=== PATIENT | male | born 1960 | race Caucasian/White ===

== ENCOUNTER 2020-08-18 08:30 | Outpatient (CLI) | payer OTHER, SELFPAY ==
--- NOTE | ~2020-08-18 | MR_ITS ---
EXAMINATION: MR lumbar spine wo con DATE: 08/18/2020 09:39 INDICATION: Low back pain. TECHNIQUE: Magnetic resonance imaging (MRI) of the lumbar spine was performed without intravenous con trast. Sequences included sagittal T2-weighted FSE, sagittal T2-weighted FS FSE, sagittal T1-weighted FSE, and axial T2-weighted FSE. COMPARISON: Lumbar spine MRI 05/26/2006 FINDINGS: There is 6 degrees levocurvature of lumbar spine. There is 4 mm retrolisthesis of L2 on L3 and L3 on L4. There is mild chronic anterior wedging of T12-L2 vertebral bodies. There are Schmorl's nodes from T11-T12 through L2-L3. There is mild decreased disc height at L1-L2 L2-L3. There is severe ly decreased disc height at L3-L4 with endplate remodeling. The distal spinal cord signal intensity i s normal. The conus medullaris is at L1. The following disc levels are specifically discussed: L1-L2: There is a central protrusion. There is mild bilateral facet joint osteoarthritis. There is mi ld left neural foraminal stenosis. There is mild central canal stenosis. L2-L3: The disc is bulging and has an annular fissure. There is severe right and moderate left facet joint osteoarthritis. There is moderate right and mild left neural foraminal stenosis. There is mild central canal stenosis. L3-L4: There is bulging and has an annular fissure. There is moderate bilateral facet joint osteoarth ritis. There is moderate bilateral neural foraminal stenosis. There is mild central canal stenosis. L4-L5: The disc is bulging. There is severe right and moderate left facet joint osteoarthritis. There is mild right and moderate left neural foraminal stenosis. There is mild central canal stenosis. L5-S1: The disc is bulging and has an annular fissure. There is mild bilateral facet joint osteoarthr itis. There is mild bilateral neural foraminal stenosis. There is mild central canal stenosis. IMPRESSION: 1. Severe lumbar spondylosis, worsened from 05/26/2006. Reviewed, dictated and finalized at location A. SIT MANAGER
== END 2020-08-18 08:31 | disposition home or self-care (01) ==
LOC: ANHIMG 08:38
PROVIDERS: PCP Family Medicine; Visit Provider Physician Assistant
DX: M47.817 Spondylosis without myelopathy or radiculopathy, lumbosacral region (principal); M48.07 Spinal stenosis, lumbosacral region; M51.46 Schmorl's nodes, lumbar region
CPT/HCPCS: 72148

== ENCOUNTER 2020-09-19 07:52 | Outpatient (CLI) | payer OTHER, SELFPAY ==
--- NOTE | ~2020-09-19 | XR_ITS ---
EXAMINATION: XR chest 2V 09/19/2020 09:21 INDICATION: Preop PROCEDURE: 2 view chest COMPARISON: 08/08/2019 FINDINGS: The lungs are clear. The cardiomediastinal silhouette is within normal limits. There are no pleural effusions. There is no pneumothorax suspected. IMPRESSION: 1: NO ACUTE CARDIOPULMONARY DISEASE. Reviewed, dictated and finalized at location B. BILITY COORDINATOR
--- NOTE | 2020-09-19 09:00 | ECG_ITS ---
Measurements Intervals [place] Rate: 67 P: 3 CA: 170 QRS: -13 QRSD: 115 T: 75 QT: 396 QTc: 420 Interpretive Statements SINUS RHYTHM INTRAVENTRICULAR CONDUCTION DELAY BORDERLINE R WAVE PROGRESSION, ANTERIOR LEADS INFERIOR INFARCT, AGE INDETERMINATE BORDERLINE ST-T WAVE ABNORMALITY- HIGH LATERAL LEADS ABNORMAL ECG Electronically Signed On 09-19-2020 9:16:59 MANAGER INSPECTION by Ahsan Estrada D.O.
[2020-09-19 09:45] LABS: Urine Cotinine NEGATIVE
== END 2020-09-19 07:53 | disposition home or self-care (01) ==
LOC: ANHSURGERY 07:54
PROVIDERS: PCP Family Medicine; Visit Provider Orthopaedic Surgery
DX: Z01.818 Encounter for other preprocedural examination (principal); M17.12 Unilateral primary osteoarthritis, left knee; R94.31 Abnormal electrocardiogram [ECG] [EKG]
CPT/HCPCS: 71046; 80307; 86850; 86900; 86901; 87070; 87147; 87186; 93005

== ENCOUNTER 2021-05-29 11:14 | Outpatient (CLI) | payer OTHER, SELFPAY ==
[2021-05-29 12:36] LABS: Basophils Percent Auto 0.3 % (0.2-1.2); Eosinophils Absolute Auto 0.1 K/mm3 (0-0.3); Eosinophils Percent Auto 1.1 % (0-4.4); Hematocrit 43.8 % (42.0-52.0); Hemoglobin 14.7 g/dL (14.0-18.0); Immature Granulocyte Absolute 0.03 K/mm3 (0.00-0.031); Immature Granulocyte Percent A 0.5 % (0-0.5); Lymphocytes Absolute Auto 0.97 K/mm3 (0.9-3.2); Lymphocytes Percent Auto 15.3 % (18.3-44.2); Mean Corpuscular HGB Conc 33.6 g/dl (32-36); Mean Corpuscular Hemoglobin 27.1 pg (26-34); Mean Corpuscular Volume 80.8 fl (80-100); Mean Platelet Volume 9.6 fl (7.4-10.4); Monocytes Absolute Auto 0.6 K/mm3 (0.1-0.6); Monocytes Percent Auto 8.8 % (2.6-8.5); Neutrophils Absolute Auto 4.7 K/mm3 (1.3-6.7); Platelet Count Result 276 k/mm3 (150-375); Red Blood Count 5.42 M/mm3 (4.6-6.20); Red Cell Distribution Width 14.9 % (11.5-14.5); White Blood Count 6.3 K/mm3 (4.5-10.0)
[2021-05-29 12:54] LABS: Anion Gap 14 mmol/L (8-16); Blood Urea Nitrogen 21 mg/dL (9-20); Calcium 9.7 mg/dL (8.4-10.2); Carbon Dioxide 23 mmol/L (22-30); Chloride 104 mmol/L (98-107); Estimated Glomerular Filt Rate > 60; Glucose 107 mg/dL (65-110); Sodium 141 mmol/L (137-145)
[2021-05-29 13:16] LABS: Hemoglobin A1C 5.9 % (<5.7)
[2021-05-29 13:32] LABS: Urine Cotinine NEGATIVE
== END 2021-05-29 11:15 | disposition home or self-care (01) ==
LOC: ANHSURGERY 11:23
PROVIDERS: PCP Family Medicine; Visit Provider Orthopaedic Surgery
DX: Z01.818 Encounter for other preprocedural examination (principal); M17.12 Unilateral primary osteoarthritis, left knee
CPT/HCPCS: 80048; 80307; 82040; 83036; 85025; 87070

== ENCOUNTER 2021-06-12 02:01 | Day surgery (SDC) | payer OTHER, SELFPAY ==
[2021-05-29 11:30] VITALS: BMI 31.0
[2021-05-29 12:04] VITALS: BP 122/85; PULSE 66; RESP 16; TEMP 37; O2SAT 97
--- NOTE | 2021-06-07 12:34 | PM.IMHP ---
H&P: HPI History of Present Illness Date/Time: 06/07/21 12:34 60 year old male patient of Dr. Gutierrez. He presents today for an [place] partial knee replacement of his left knee. He has been having pain in this knee for years. He has been on diclofenac chronically. He has severe medial compartment arthritis. He has reached a point where his pain is on a daily basis and keeping him from activities. He is ready proceed with surgical intervention to the knee. He has been evaluated and felt to be a good candidate for partial knee replacement. Chief Complaint: left knee DJD Review of Systems Review of Systems: All systems reviewed & are unremarkable except as noted in HPI and below PMFSH Past Medical History Medical History GERD (gastroesophageal reflux disease) HLD (hyperlipidemia) HTN (hypertension) Surgical History Surgical History No significant past surgical history Family History Family History Mother Hypertension Cerebrovascular accident Family history of elevated blood lipids Father Cerebrovascular accident Social History Social History Smoking packs per day: 1.5 Smoking cigarettes per day: 30.0 Years smoked: 30 Smoking pack-years: 45.00 Smoking status: Former smoker Tobacco type: cigarettes Second hand tobacco smoke exposure: Yes Smoking end date: 08/10/99 Additional smoking assessment comments: DENIES ANY FORM OF TOBACCO USE Alcohol intake: never Alcohol use details: QUIT 1999 Substance use: never Substance use type: does not use Gender identity (if verbalized by the patient): Male Spiritual care concerns: No Meds Home Medications and Allergies Home Medications Medication Instructions Recorded Confirmed Type Filipino ginseng root [Filipino 550 mg PO QAM 09/19/20 05/29/21 History Ginseng] ascorbic acid (vitamin C) [Vitamin 1 g PO QAM 09/19/20 05/29/21 History C] cholecalciferol (vitamin D3) 125 mcg PO QAM 09/19/20 05/29/21 History cyanocobalamin (vitamin B-12) 5,000 mcg PO QAM 09/19/20 05/29/21 History ferrous sulfate [iron] 325 mg PO 2XW 09/19/20 05/29/21 History uncvjzuw-ker-uahfb-vit K-lycop 1 tablet PO QAM 09/19/20 05/29/21 History [One-A-Day Men's 50 Plus] omega-3 fatty acids-vitamin E 1 cap PO QAM 09/19/20 05/29/21 History [Fish Oil] omeprazole 40 mg PO QAM 09/19/20 05/29/21 History psyllium husk [Metamucil] 3.12 g PO QAM 09/19/20 05/29/21 History irbesartan 150 1 tablet PO QAM #90 tablet 09/27/20 05/29/21 Rx mg-hydrochlorothiazide 12.5 mg tablet atorvastatin 20 mg tablet See Rx Instructions .ROUTE 02/18/21 05/29/21 Rx .COMPLEX #90 tablet acetaminophen [Tylenol Extra 1,500 mg PO DAILY PRN 05/29/21 05/29/21 History Strength] diclofenac sodium 150 mg PO DAILY 05/29/21 05/29/21 History glucosamine sulfate [Glucosamine] 500 mg PO DAILY 05/29/21 05/29/21 History Allergies Allergy/AdvReac Type Severity Reaction Status Date / Time bee venom protein (honey bee) Allergy Unknown UNKNOWN Verified 05/29/21 11:31 Exam Narrative: 60-year-old male he is 5 ft 10 and 206 lb. He walks with a minimal limp. Range of motion left knee is from 0-140 degrees. There is no definite effusion. No medial or lateral joint line tenderness. No pain patellofemoral grind. Negative Hola's. Moderate valgus pseudolaxity medially. 2+ dorsalis pedis and post tibial artery pulse. Normal sensation. Skin is all normal in left leg. His left hip has full range of motion without discomfort. Negative Stinchfield maneuver. No edema in left lower extremity. Resp: Auscultation: clear to auscultation bilaterally Cardio: Rate: regular rate Rhythm: regular rhythm Assessment and Plan Additional Plan 60-year-old male who has isolated medial
--- NOTE | 2021-06-11 14:26 | WPDANESEPPF ---
Anes - Initial Pre Proc Eval Procedure: Operation Date: 06/12/21 07:30 Proposed Procedures p Left [place] Partial Knee Replacement Versus Total Knee Arthroplasty - Ernie Vogel MD Date/Time: 06/11/21 14:27 Surgeon: Ernie Vogel MD Pre Op Diagnosis: Medial compartment OA Left knee Patient Data Age: 60 Gender: M Height: 1.83 m Weight: 103.9 kg Last Vital Signs Temp 37.0 C 05/29/21 12:04 Pulse 66 05/29/21 12:04 Resp 16 05/29/21 12:04 BP 122/85 05/29/21 12:04 Pulse Ox 97 05/29/21 12:04 Allergies Allergy/AdvReac Type Severity Reaction Status Date / Time bee venom protein (honey bee) Allergy Unknown UNKNOWN Verified 06/12/21 05:59 Home Medications Medication Instructions Recorded Confirmed Type Wallisian ginseng root [Wallisian 550 mg PO QAM 09/19/20 06/12/21 History Ginseng] ascorbic acid (vitamin C) [Vitamin 1 g PO QAM 09/19/20 06/12/21 History C] cholecalciferol (vitamin D3) 125 mcg PO QAM 09/19/20 06/12/21 History cyanocobalamin (vitamin B-12) 5,000 mcg PO QAM 09/19/20 06/12/21 History ferrous sulfate [iron] 325 mg PO 2XW 09/19/20 06/12/21 History jpeoxsgs-cjm-kzmnk-vit K-lycop 1 tablet PO QAM 09/19/20 06/12/21 History [One-A-Day Men's 50 Plus] omega-3 fatty acids-vitamin E 1 cap PO QAM 09/19/20 06/12/21 History [Fish Oil] omeprazole 40 mg PO QAM 09/19/20 06/12/21 History psyllium husk [Metamucil] 3.12 g PO QAM 09/19/20 06/12/21 History irbesartan 150 1 tablet PO QAM #90 tablet 09/27/20 06/12/21 Rx mg-hydrochlorothiazide 12.5 mg tablet atorvastatin 20 mg tablet See Rx Instructions .ROUTE 02/18/21 06/12/21 Rx .COMPLEX #90 tablet acetaminophen [Tylenol Extra 1,500 mg PO DAILY PRN 05/29/21 06/12/21 History Strength] diclofenac sodium 150 mg PO DAILY 05/29/21 06/12/21 History glucosamine sulfate [Glucosamine] 500 mg PO DAILY 05/29/21 06/12/21 History Patient hx anesthesia problems: none Family hx anesthesia problems: none Results Review: All pre-operative results and documents have been reviewed as part of the pre-operative evaluation. [facility] Past Medical History Medical History (Updated 06/11/21 @ 14:27 by Wiley Duff MD) Back Pain GERD (gastroesophageal reflux disease) HLD (hyperlipidemia) HTN (hypertension) Obesity Surgical History Surgical History No significant past surgical history Family History Family History Mother Hypertension Cerebrovascular accident Family history of elevated blood lipids Father Cerebrovascular accident Social History Social History Smoking packs per day: 1.5 Smoking cigarettes per day: 30.0 Years smoked: 30 Smoking pack-years: 45.00 Smoking status: Former smoker Tobacco type: cigarettes Second hand tobacco smoke exposure: Yes Smoking end date: 08/10/99 Additional smoking assessment comments: DENIES ANY FORM OF TOBACCO USE Alcohol intake: never Alcohol use details: QUIT 1999 Substance use: never Substance use type: does not use Living arrangements: alone Gender identity (if verbalized by the patient): Male Spiritual care concerns: No Anes - Eval Final PreProcedure Day of Procedure 06/11/21 14:27 Patient weight: obese Heart: regular rate and rhythm Lungs: clear to auscultation and normal air movement Airway: Mallampati scale class II Neurological: alert and oriented Last oral intake: >/= 8 hours ASA classification: III Emergent: no Anesthetic plan: proceed Anesthesia type and monitoring: general ETT Results Review: All pre-operative results and documents have been reviewed as part of the pre-operative evaluation. Informed Consent: The patient's anesthetic plan and its attendant risks and benefits were discussed with the patient/family/POA. Questions were solicited and answers provided to the satisf
[2021-06-12] VITALS (13 sets, daily range): BP systolic 109–1113; BP diastolic 57–98; PULSE 60–94; RESP 12–16; TEMP 35.8–36.7; O2SAT 94–100
--- NOTE | ~2021-06-12 | XR_ITS ---
EXAMINATION: KNEE ONE/TWO VIEW-RIGHT DATE: 06/12/2021 11:41 INDICATION: Postoperative evaluation following left knee medial unicompartmental arthroplasty TECHNIQUE: Anteroposterior and lateral views of the left knee were obtained. COMPARISON: None. FINDINGS: Left knee medial unicompartmental arthroplasty appears well seated and in near anatomic alignment. N o fractures identified. Expected postoperative subcutaneous and intra-articular gas. IMPRESSION: 1. Left knee medial unicompartmental arthroplasty, negative for postoperative purposes. Reviewed, dictated and finalized at location A. IMPRESSION: 1. Left knee medial unicompartmental arthroplasty, negative for postoperative p urposes.
--- NOTE | ~2021-06-12 | XR_ITS ---
EXAMINATION: XR surgery orthopedic EXAM DATE: 06/12/2021 11:09 INDICATION: Left knee partial replacement. TECHNIQUE: Fluoroscopy used during XR surgery orthopedic performed by Dr. Ernie Vogel MD. Radi ologist was not present for the imaging or procedure. Total fluoroscopic time of 1 minute 19 seconds . The DAP for this procedure was 25.7 cGycm2. A total of 3 images sent to PACS from the exam. FINDINGS: Images demonstrate arthroplasty hardware overlying left knee medial tibiofemoral compartme nt. Correlate with procedure note. IMPRESSION: Fluoroscopy used during left knee surgery. Reviewed, dictated and finalized at location A.
[2021-06-12] MEDS: ACETAMINOPHEN 500 MG TABLET 1000 MG PO ×2 (06:01→17:22)
[2021-06-12] MEDS: LACTATED RINGERS 1,000 ML 30 ML IV CONT ×2 (06:29→11:25)
[2021-06-12] MEDS: TRANEXAMIC ACID 1,000MG/ISO100 1,000 MG/100 ML BAG 200 MG IVPB (06:54)
--- NOTE | 2021-06-12 07:17 | WPDHPUPDATE1 ---
History and Physical Update Update Date/Time: 06/12/21 07:17 History and Physical has been reviewed, including an updated exam of the patient. There are NO changes in the patient's condition. Risks, benefits, and alternatives have been discussed and questions answered. Patient agrees to proceed with procedure.
[2021-06-12] MEDS: ceFAZolin 2 GM/D5W 50 ML 2 GM/50 ML BAG IVPB (07:32)
[2021-06-12] MEDS: ceFAZolin SODIUM 1 GM VIAL 3 GM IRRIGATION (08:53)
[2021-06-12] MEDS: TRANEXAMIC ACID 1,000 MG/10 ML AMPUL 1000 MG IV PUSH (10:16)
[2021-06-12] MEDS: ceFAZolin SODIUM 1 GM VIAL IV PUSH (10:20)
--- NOTE | 2021-06-12 11:22 | W.PM.PROC2 ---
Procedure Note - Detailed Date of Procedure 06/12/21 Pre-op Diagnosis Medial compartment OA Left knee Post-op Diagnosis same Procedure Performed [place] partial knee replacement Surgeon Ernie Vogel MD Purchase Analyst Leonor Marvin Anesthesia general Description of Procedure Patient was brought to the operating room and general anesthesia was administered. Received 2 g of Ancef weight based vancomycin to 1 g of tranexamic acid preoperatively. The left leg was supported on the [place] thigh vera after application of tourniquet on the thigh. This was additionally padded. The left knee was prepped draped usual fashion. Limb was exsanguinated tourniquet elevated to 250 mmHg. A 4 in longitudinal median parapatellar incision was made from medial to tibial tubercle to medial to superior pole of patella. Arthrotomy was made in line with the incision. A 1 cm split the vastus medialis made top. A small amount of the infrapatellar fat pad was excised. The ACL was intact. Lateral compartment looked normal. There was a large anvil osteophyte that was debrided. There were large medial distal femoral osteophytes removed. A medial tibial osteophyte was removed anteriorly and medial and inferior patellar osteophyte removed. Cartilage on the trochlea showed minimal chondromalacia mild chondromalacia medial facet of the patella. Osteophytes from around the intercondylar notch were removed. The 3 mm spoon fit and we linked this to the tibial cutting guide set at 5? of posterior slope. This was pinned and the tibial cut was made. We brought in the mini C-arm to determine the optimal position for the vertical wall and I could see that the de would fit anterior to posterior and that the see was somewhat undersized. An additional 2 mm of bone remained from the vertical wall and after preparation the size D fit line to line on the tibial plateau. I felt the large femur was best size for him and using the femoral drill guide set at 5 mm linked to the intramedullary rick in the femur, drill holes were made in the center of the medial femoral condyle. Posterior Thatch chamfer cut made. Distal femur milled with a size 0 mm spigot and we trialed. The 5 Feeler was a bit tight in flexion the 4 bit loose. In extension the 2 was tight and the. An additional 3 mm of bone were removed the distal femur with a 3 mm spigot. On trialing we had appropriate balance and wiggle with the 5 mm bearing trial at 20? and 100? of flexion. The trial tibia was spiked tibial plateau and the keel slot made with the toothbrush saw. The impingement guide was placed and anterior impingement recessed milled on the femur posteriorly there were no additional osteophytes removed. On trialing the 5 bearing tracked appropriately.. Was 1 mm from the vertical wall at 90? and about 3-4 mm from the vertical wall at full extension. A step drill was used to make multiple perforations in the tibial plateau and distal femur and the bony surfaces thoroughly irrigated and dried. One batch of methyl methylmethacrylate was mixed and applied to the D tibial component and then pressurized into the tibial plateau and the D tibia fully seated and trial femur inserted the knee brought into 45? of flexion with the 5 degree Feeler which was tight. Tourniquet was released at about 100 minutes. Cement was allowed to harden after which excess cement was sought for removed and we re-exsanguinated the limb again tourniquet elevated to 250 mmHg and after irrigation and drying the large femoral component was cemented in the same fashion. Tourniquet was again released. After cement hardening excess cement was sought for removed and we trialed. The 5 Feeler was too tight the 4 mm feel it had the appropriate friction to it. The 4 mm bearing was snapped into place with a fair amount of difficulty and had appropriate wiggle in flexion extension. I could not snapped the [address] Therefore the 4 mm bearing was chosen was placed w
--- NOTE | 2021-06-12 11:44 | P.DS_ITS ---
DS: Admitting Diagnosis Discharge Date 06/12/2021 Admitting Diagnosis Osteoarthritis left knee DS: Discharge Diagnosis Discharge Diagnosis (1) Total knee replacement status: Code(s): Z96.659 - Presence of unspecified artificial knee joint Status: Acute Assessment and Plan: Patient underwent left partial knee replacement with Hiller system medial compartment left knee on 06/12/2021. Be discharged either on 06/12 or 06/13 home. DS: Summary Hospital Course Hospital Course: Patient had an uneventful surgery. We will see how he feels this afternoon and if he would like to go home he may be discharged today if not we will keep him overnight and discharge him tomorrow morning after therapy. Time Spent with Patient Time attestation: Total time spent providing and/or coordinating discharge services: DS: Data Data Completed and Pending Labs on day of discharge: Labs from last 24 hours 06/12/21 06:23 Blood Type A Positive Antibody Screen Negative Discharge Plan Discharge Patient Disposition: Home, Self-Care Discharge Instructions: Avoid sitting in the chair during the 1st 10 days after surgery except to eat go to the bathroom and perhaps receive a visitor. When not up walking, reclined with your back on the bed or couch with her leg elevated on several pillows to keep your knee above your heart which will minimize excess swelling. Change the dressing after 6 days and apply a new dressing. If bleeding tracks to the edge of the dressing you can change it at that time. Stand Alone Forms: General Discharge Instructions Discharge Medications: New acetaminophen 500 mg Tablet 1,000 mg PO Q6H Qty: 100 RF: 0 Eliquis 2.5 mg Tablet 2.5 mg PO Q12HR Qty: 24 RF: 0 celecoxib [Celebrex] 200 mg Capsule 200 mg PO DAILY@0800 Qty: 30 RF: 0 sennosides-docusate sodium [Senokot-S] 8.6-50 mg Tablet 2 tab PO BID Qty: 100 RF: 0 oxycodone 5 mg Tablet 5 mg PO Q4H PRN (Reason: Pain Rated 4-10) Qty: 40 RF: 0 Continued cholecalciferol (vitamin D3) 125 mcg (5,000 unit) Capsule 125 mcg PO QAM RF: 0 psyllium husk [Metamucil] 0.52 gram Capsule 3.12 g PO QAM RF: 0 One-A-Day Men's 50 Plus 400-20-370 mcg Tablet 1 tablet PO QAM RF: 0 cyanocobalamin (vitamin B-12) 5,000 mcg Capsule 5,000 mcg PO QAM RF: 0 omeprazole 40 mg capsule,delayed release(DR/EC) 40 mg PO QAM RF: 0 irbesartan-hydrochlorothiazide 150-12.5 mg tablet 1 tablet PO QAM Qty: 90 RF: 3 atorvastatin 20 mg tablet See Rx Instructions .ROUTE .COMPLEX Qty: 90 RF: 3 Held ascorbic acid (vitamin C) [Vitamin C] 1,000 mg Tablet 1 g PO QAM RF: 0 Hold Instructions: Resume on 06/26/21. ferrous sulfate [iron] 325 mg (65 mg iron) Tablet 325 mg PO 2XW RF: 0 Hold Instructions: Resume on 06/26/21. Senegalese ginseng root 500 mg Capsule 550 mg PO QAM RF: 0 Hold Instructions: Resume on 06/26/21. omega-3 fatty acids-vitamin E 1,000 mg Capsule 1 cap PO QAM RF: 0 Hold Instructions: Resume on 06/26/21. glucosamine sulfate [Glucosamine] 500 mg Tablet 500 mg PO DAILY RF: 0 Hold Instructions: Resume on 06/26/21. Discontinued diclofenac sodium 75 mg tablet,delayed release (DR/EC) 150 mg PO DAILY RF: 0 acetaminophen [Tylenol Extra Strength] 500 mg Capsule 1,500 mg PO DAILY PRN (Reason: Pain) RF: 0
--- NOTE | 2021-06-12 12:15 | SUR.PHASEI ---
[id number]- Call to Dr. Vogel to clarify pain medication orders. Per Dr. Vogel change pain scale for PRN oxycodone to pain rated 5-6.
--- NOTE | 2021-06-12 12:30 | ADMGEN ---
This patient, Aamir Robert, was admitted to Medical Room 247-. Patient/family oriented to hospital policies and general routines including ID bracelet, bed and alarms, visiting hours, pain management, procedures, bathroom and other care routines, personal items, smoking policy, room service/diet, and visiting hours. Information on how to activate the Rapid Response Team has been discussed. Patient/Family are encouraged to report perceived risks to care and to ask questions if they do not understand what they are told or what they should do.
--- NOTE | 2021-06-12 12:46 | ADMGEN ---
This patient, Aamir Robert, was admitted to 2 Medical Room 247. Patient/family oriented to hospital policies and general routines including ID bracelet, bed and alarms, visiting hours, pain management, procedures, bathroom and other care routines, personal items, smoking policy, room service/diet, and visiting hours. Information on how to activate the Rapid Response Team has been discussed. Patient/Family are encouraged to report perceived risks to care and to ask questions if they do not understand what they are told or what they should do. 1230-pt arrived to room from pacu. Pt A/O x3. Dressing to left knee dry and intact. Denies pain at this time.
[2021-06-12] MEDS: SODIUM CHLORIDE 0.9% IV 1,000 ML 125 ML IV CONT (13:44)
[2021-06-12] MEDS: ONDANSETRON INJ 4 MG/2 ML VIAL IV PUSH (15:19)
[2021-06-12] MEDS: oxyCODONE HCL (*CRX) 5 MG TAB IR PO ×2 (15:19→19:36)
[2021-06-12] MEDS: SENNA/DOCUSATE SODIUM TABLET 2 TAB PO (16:22)
[2021-06-13] MEDS: ACETAMINOPHEN 500 MG TABLET 1000 MG PO ×3 (00:01→11:03)
[2021-06-13 00:58] VITALS: BP 121/77; PULSE 71; RESP 16; TEMP 36.5; O2SAT 98
[2021-06-13] MEDS: oxyCODONE HCL (*CRX) 5 MG TAB IR PO ×4 (04:06→11:05)
[2021-06-13 04:58] VITALS: BP 118/64; PULSE 62; RESP 16; TEMP 36.3; O2SAT 100
[2021-06-13 05:36] LABS: Anion Gap 10 mmol/L (8-16); Blood Urea Nitrogen 17 mg/dL (9-20); Calcium 9.6 mg/dL (8.4-10.2); Carbon Dioxide 23 mmol/L (22-30); Chloride 108 mmol/L (98-107); Eosinophils Percent Auto 0.1 % (0-4.4); Estimated CRCL calculation 107 ml/min; Estimated Glomerular Filt Rate > 60; Glucose 104 mg/dL (65-110); Hematocrit 37.7 % (42.0-52.0); Hemoglobin 12.4 g/dL (14.0-18.0); Immature Granulocyte Absolute 0.06 K/mm3 (0.00-0.031); Immature Granulocyte Percent A 0.4 % (0-0.5); Lymphocytes Absolute Auto 0.94 K/mm3 (0.9-3.2); Lymphocytes Percent Auto 6.7 % (18.3-44.2); Mean Corpuscular HGB Conc 32.9 g/dl (32-36); Mean Corpuscular Hemoglobin 26.3 pg (26-34); Mean Corpuscular Volume 79.9 fl (80-100); Monocytes Absolute Auto 1.4 K/mm3 (0.1-0.6); Monocytes Percent Auto 9.6 % (2.6-8.5); Neutrophils Absolute Auto 11.8 K/mm3 (1.3-6.7); Neutrophils Percent Auto 83.2 % (45.5-73.1); Platelet Count Result 273 k/mm3 (150-375); Potassium 4.2 mmol/L (3.4-5.0); Red Blood Count 4.72 M/mm3 (4.6-6.20); Red Cell Distribution Width 15.1 % (11.5-14.5); Sodium 141 mmol/L (137-145); White Blood Count 14.1 K/mm3 (4.5-10.0)
[2021-06-13] MEDS: CYANOCOBALAMIN 1,000 MCG TABLET 5000 MCG PO (08:02)
[2021-06-13] MEDS: PSYLLIUM POWDER PACKET 1 PACKET PO (08:02)
[2021-06-13] MEDS: IRBESARTAN 150 MG TABLET PO (08:02)
[2021-06-13] MEDS: hydroCHLOROthiazide 12.5 MG CAPSULE PO (08:02)
[2021-06-13] MEDS: CELECOXIB 200 MG CAPSULE PO (08:03)
[2021-06-13] MEDS: ATORVASTATIN 20 MG TABLET PO (08:03)
[2021-06-13] MEDS: SENNA/DOCUSATE SODIUM TABLET 2 TAB PO (08:03)
[2021-06-13] MEDS: CHOLECALCIFEROL 1,000 UNITS TABLET 5000 UNITS PO (08:03)
[2021-06-13 08:04] VITALS: RESP 18; O2SAT 100
[2021-06-13] MEDS: THERAPEUTIC MULTIVITAMINS/MINERALS TAB (*BKC) 1 TABLET PO (08:04)
[2021-06-13] MEDS: PANTOPRAZOLE 40 MG TABLET PO (08:04)
[2021-06-13] MEDS: APIXABAN 2.5 MG TABLET PO (08:04)
--- NOTE | 2021-06-13 09:31 | PM.PNORT ---
Progress Note: A&P Additional Plan Patient is ready for discharge to home today nausea has resolved. Patient voiced understanding agrees above plan. He is instructed to call the office immediately for any further problems difficulties or questions regarding his postoperative course. He will follow up with Dr. Vogel as prescheduled by the office. Subjective Subjective Date/Time Seen: 06/13/21 09:31 patient is doing well status post partial knee arthroplasty nausea has resolved. The patient's pain is well controlled he is deemed stable for discharge to home he is eating well this morning and tolerating physical therapy. Review of Systems Review of Systems: All systems reviewed & are unremarkable except as noted in HPI and below Exam Narrative: Patient is a well-developed well-nourished male no acute distress alert oriented x3. Normal mood and affect this morning. Sitting up eating breakfast nausea is well controlled pain is well controlled. Vital signs are stable is afebrile neurovascular is intact wound is clean and dry calves are benign. Objective Data Vital Signs Vital Signs: Vital Signs - 24 hr 06/12/21 11:25 06/12/21 11:40 06/12/21 11:45 Temperature 36.4 C L Pulse Rate 91 71 72 Respiratory Rate 13 12 16 Blood Pressure 152/83 H 1113/57 H 117/64 Pulse Oximetry 100 97 94 06/12/21 11:55 06/12/21 12:05 06/12/21 12:20 Temperature Pulse Rate 70 69 66 Respiratory Rate 16 16 16 Blood Pressure 109/69 109/76 125/77 Pulse Oximetry 97 95 97 06/12/21 12:30 06/12/21 12:45 06/12/21 12:56 Temperature 35.8 C L 36.3 C L Pulse Rate 64 60 Respiratory Rate 14 14 Blood Pressure 115/69 125/82 Pulse Oximetry 94 96 95 06/12/21 13:15 06/12/21 18:20 06/12/21 20:58 Temperature 36.3 C L 36.7 C 36.6 C Pulse Rate 62 94 70 Respiratory Rate 14 14 16 Blood Pressure 122/76 147/79 H 136/72 Pulse Oximetry 94 96 100 06/13/21 00:58 06/13/21 04:58 Temperature 36.5 C 36.3 C L Pulse Rate 71 62 Respiratory Rate 16 16 Blood Pressure 121/77 118/64 Pulse Oximetry 98 100 Intake/Output Intake/Output: Intake & Output 06/10/21 06/11/21 06/12/21 06/13/21 23:59 23:59 23:59 23:59 Intake Total 1989 1040 Balance 1989 1040 Meds/Results Medications: Active Medications Generic Name Dose Route Start Last Admin Trade Name Freq PRN Reason Stop Dose Admin Acetaminophen 1,000 mg 06/12/21 18:00 06/13/21 06:51 Acetaminophen 500 Mg Tablet PO 1,000 mg Q6HR ELISA Administration Apixaban 2.5 mg 06/13/21 09:00 06/13/21 08:04 Apixaban 2.5 Mg Tablet PO 06/16/21 08:59 2.5 mg Q12HR ELISA Administration Atorvastatin Calcium 20 mg 06/13/21 09:00 06/13/21 08:03 Atorvastatin 20 Mg Tablet PO 20 mg DAILY ELISA Administration Celecoxib 200 mg 06/13/21 08:00 06/13/21 08:03 Celecoxib 200 Mg Capsule PO 200 mg DAILY@0800 ELISA Administration Cyanocobalamin 5,000 mcg 06/13/21 09:00 06/13/21 08:02 Cyanocobalamin 1,000 Mcg Tablet PO 5,000 mcg QAM ELISA Administration Hydrochlorothiazide 12.5 mg 06/13/21 09:00 06/13/21 08:02 Hydrochlorothiazide 12.5 Mg Capsule PO 07/13/21 08:59 12.5 mg QAM ELISA Administration Irbesartan 150 mg 06/13/21 09:00 06/13/21 08:02 Irbesartan 150 Mg Tablet PO 07/13/21 08:59 150 mg QAM ELISA Administration Morphine Sulfate 2 mg 06/12/21 11:12 Morphine Sulfate (*Crx) 2 Mg/Ml Inj IV PUSH Q1H PRN Pain Rated 7-10 Multivitamins/Calcium 1 tablet 06/13/21 09:00 06/13/21 08:04 Therapeutic Multivitamins/Minerals Tab (*Bkc) PO 1 tablet QAM ELISA Administration Naloxone HCl 0.1 mg 06/12/21 11:12 Naloxone Hcl 0.4 Mg/Ml Vial IV PUSH Q2M PRN Opiate Reversal Ondansetron HCl 4 mg 06/11/21 14:26 06/12/21 15:19 Ondansetron Inj 4 Mg/2 Ml Vial IV PUSH 4 mg ONCE PRN Administration Nausea Oxycodone HCl 5 mg 06/12/21 11:15 06/13/21 06:50 Oxycodone Hcl (*Crx) 5 Mg Tab Ir PO 5 mg Q4H ELISA Ad
[2021-06-13 09:55] VITALS: BP 112/57; PULSE 71; RESP 16; TEMP 36.4; O2SAT 97
== END 2021-06-13 11:10 | disposition home or self-care (01) ==
LOC: ANHSURGERY 11:47 → ANH2MED 12:28
PROVIDERS: PCP Family Medicine; Visit Provider Orthopaedic Surgery
PROC: (CPT 27446; principal; 2021-06-12 07:30)
DX: M17.12 Unilateral primary osteoarthritis, left knee (principal); I10 Essential (primary) hypertension; E78.5 Hyperlipidemia, unspecified; K21.9 Gastro-esophageal reflux disease without esophagitis; E66.9 Obesity, unspecified; Z68.31 Body mass index [BMI] 31.0-31.9, adult; Z87.891 Personal history of nicotine dependence
CPT/HCPCS: 27446; 36415; 73560; 80048; 80307; 82040; 83036; 85025; 86850; 86900; 86901; 87070; 97110; 97116; 97162; 97165; 97530; A9270; C1713; C1776; J0171; J0690; J1100; J1170; J1885; J2250; J2270; J2405; J2704; J2710; J2795; J3010; J3370; J7030; J7120

== ENCOUNTER → 2022-09-23 10:27 | Outpatient (CLI) | payer OTHER, SELFPAY ==
--- NOTE | ~2022-09-23 | MR_ITS ---
EXAMINATION: MR shoulder LT wo con DATE: 09/23/2022 11:19 INDICATION: Left shoulder pain. TECHNIQUE: Magnetic resonance imaging (MRI) of the left shoulder was performed without intravenous co ntrast. Sequences included axial PD-weighted FS FSE, coronal oblique PD-weighted FS FSE and T2-weight ed FS FSE, and sagittal oblique T2-weighted FS FSE and T1-weighted FSE. COMPARISON: None. FINDINGS: Coracoacromial arch: The acromion undersurface is curved in morphology (type II). There is severe acromioclavicular joint osteoarthritis including inferiorly directed osteophytes. There is moderate subacromial/subdeltoid bu rsitis. Rotator cuff: There is severe supraspinatus and infraspinatus tendinopathy. There is a full-thickness tear of supra spinatus and infraspinatus tendons measuring 2.0 cm anterior to posterior by 2.7 cm proximal to dista l. Teres minor tendon is normal. Subscapularis tendon is normal. There is mild fatty atrophy of infra spinatus muscle belly. Biceps tendon and glenoid labrum: Biceps tendon is in bicipital groove. Intra-articular biceps tendon is normal. There is degenerative tearing of the glenoid labrum anteriorly and posteriorly. Fluid: There is a small glenohumeral joint effusion. Bones/cartilage: There is shallow partial-thickness cartilage loss of glenoid and humeral head. IMPRESSION: 1. Full-thickness rotator cuff tear. 2. Mild glenohumeral joint chondrosis. 3. Small glenohumeral joint effusion and moderate subacromial/subdeltoid bursitis. 4. Severe acromioclavicular joint osteoarthritis. Reviewed, dictated and finalized at location A. TABLE THINNER IMPRESSION: 1. Full-thickness rotator cuff tear. 2. Mild glenohumeral joint chondrosis. 3. Small glenohumeral joint effusion and moderate subacromial/subdeltoid bursit is. 4. Severe acromioclavicular joint osteoarthritis.
== END ==
PROVIDERS: PCP Physician Assistant; Visit Provider Physician Assistant
DX: M25.512 Pain in left shoulder (principal); M75.122 Complete rotator cuff tear or rupture of left shoulder, not specified as traumatic; M94.212 Chondromalacia, left shoulder; M19.012 Primary osteoarthritis, left shoulder; M75.52 Bursitis of left shoulder
CPT/HCPCS: 73221

== ENCOUNTER 2022-12-31 14:52 | Outpatient (CLI) | payer OTHER, SELFPAY ==
--- NOTE | 2022-12-31 15:09 | ECG_ITS ---
Measurements Intervals [place] Rate: 74 P: MD: 0 QRS: -17 QRSD: 114 T: 77 QT: 415 QTc: 462 Interpretive Statements SINUS RHYTHM INTRAVENTRICULAR CONDUCTION DELAY LEFT VENTRICULAR HYPERTROPHY WITH ST-T CHANGE POOR R WAVE PROGRESSION, ANTERIOR LEADS INFERIOR INFARCT, AGE INDETERMINATE BASELINE ARTIFACT- II, III, AVR, AVL, AVF, V2 ABNORMAL ECG COMPARED TO ECG 09/19/2020 09:38:06 NO SIGNIFICANT CHANGES Electronically Signed On 12-31-2022 15:28:45 CDT by Ahsan Estrada D.O.
[2022-12-31 15:34] LABS: Hematocrit 39.1 % (42.0-52.0)
[2022-12-31 15:53] LABS: Anion Gap 8 mmol/L (8-16); Blood Urea Nitrogen 17 mg/dL (9-20); Calcium 9.6 mg/dL (8.4-10.2); Carbon Dioxide 27 mmol/L (22-30); Chloride 105 mmol/L (98-107); Estimated Glomerular Filt Rate > 60; Glucose 89 mg/dL (65-110); Potassium 4.7 mmol/L (3.4-5.0); Sodium 140 mmol/L (137-145)
== END 2022-12-31 14:53 | disposition home or self-care (01) ==
PROVIDERS: Anesthesiology; PCP Physician Assistant; Visit Provider Orthopaedic Surgery
DX: Z01.812 Encounter for preprocedural laboratory examination (principal); Z01.810 Encounter for preprocedural cardiovascular examination; M75.102 Unspecified rotator cuff tear or rupture of left shoulder, not specified as traumatic; M12.812 Other specific arthropathies, not elsewhere classified, left shoulder; E78.5 Hyperlipidemia, unspecified; I10 Essential (primary) hypertension; Z79.899 Other long term (current) drug therapy; D64.9 Anemia, unspecified; I45.9 Conduction disorder, unspecified; I51.7 Cardiomegaly
CPT/HCPCS: 36415; 80048; 85014; 85018; 87081; 87147; 87181; 87186; 93005

== ENCOUNTER 2023-01-07 00:47 | Day surgery (SDC) | payer OTHER, SELFPAY ==
--- NOTE | 2022-12-30 11:15 | PC.NURSE ---
Report to the Outpatient Waiting Room, entrance under the green pavilion located off [facility], at time 10:00 on date 01/07/23. Planned Procedure Time: 12:00. Time changes happen often and if your time is changed the preop area will call you the afternoon before. - You and your visitor will be asked to self-screen and do not enter if you have any COVID symptoms. - A mask is optional within the hospital at this time. Patients may have clear liquids (water, carbonated beverages, clear teas, apple juice) until 3 hours prior to surgery (9:00) with a maximum of 20 ounces. - No food from midnight until time of surgery Take the following medications with a SIP of water the morning of surgery: TRAMADOL IF NEEDED DO NOT STOP ANY OF YOUR OTHER PRESCRIPTION MEDICATIONS PRIOR TO SURGERY EXCEPT THE FOLLOWING Medications to discontinue per physician: VITAMINS/SUPPLEMENTS Date to take last dose: 01/03/23 LAST DOSE OF DICLOFENAC 12/30/22 Please no make-up, nail libyan, hairspray, perfume, deodorant, or body powder the day of surgery. No jewelry (including any body piercings) or valuables the day of surgery, leave them at home. Please take a shower or bath the night before, or the morning of, surgery with an antibacterial soap. Wear comfortable, loose fitting clothing. - Jewelry must be removed prior to entering the operating room. Rings and piercings that are not removed may be cut off. - The hospital will not accept responsibility for valuables. - Please leave all valuables, including medications, at home the day of surgery. If you are going home after surgery, a licensed local company intermodal truck driver must drive you home. - NO public transportation without another adult if you receive anesthesia. - We recommend that an adult stay with you for 24 hours following discharge. - We also recommend that you do not drive, make important decision, drink alcoholic beverages, or take any drugs that were not prescribed by your health care provider for at least 24 hours after your discharge time. Follow any additional instructions given to you from your surgeon. If you or anyone in your household have experienced Covid symptoms in the past week, please notify your surgeon or the nurse liaison at the phone number below for possible testing. Telephone instructions given to PT - SANNA STOREY and asked if any additional questions and then verbalized understanding. Patient advised to call surgeon office or pre surgery nurse liaison [phone] if any additional questions.
[2023-01-07] VITALS (9 sets, daily range): BP systolic 120–146; BP diastolic 70–92; PULSE 75–90; RESP 14–20; TEMP 36.1–36.8; O2SAT 93–97
--- NOTE | 2023-01-07 08:40 | SUR.PREOP ---
0840-SPOKE W/DR. LAL RE: KNOWLEDGE OF +NASAL CULTURE--STATES HE IS AWARE AND TX STARTED YESTERDAY, OKAY TO PROCEED.
[2023-01-07] MEDS: ACETAMINOPHEN 500 MG TABLET 1000 MG PO (10:21)
[2023-01-07] MEDS: LACTATED RINGERS 1,000 ML 30 ML IV CONT ×2 (10:45→16:12)
[2023-01-07] MEDS: KETOROLAC 15 MG/ML VIAL (*BKC) IV PUSH (10:47)
--- NOTE | 2023-01-07 11:15 | PM.IMHP ---
H&P: HPI History of Present Illness Date/Time: 01/07/23 11:15 Chief Complaint: Rotator cuff tear left shoulder Narrative: 62 year old male patient not mild and presents today for left shoulder arthroscopy with cuff repair. He originally injured his shoulder in September of this year. He was or reaching for a large short been applied a box that 3 him continue her fluid. When he was doing this he felt a sudden pain in left shoulder. Since that time he has been having pain and weakness in the shoulder. Patient had an MRI scan done approximately a week after the injury which did show full-thickness tear of the supraspinatus well as the infraspinatus tendon. Dr. Vogel reviewed MRI findings with the patient. He discussed treatment options including surgical and nonsurgical treatment. Patient decided he would rather proceed with surgery at this point Rather than continue nonsurgical treatment. Review of Systems Review of Systems: All systems reviewed & are unremarkable except as noted in HPI and below PMFSH Past Medical History Medical History Back Pain GERD (gastroesophageal reflux disease) HLD (hyperlipidemia) HTN (hypertension) Obesity Surgical History Surgical History No significant past surgical history Family History Family History Mother Hypertension Cerebrovascular accident Family history of elevated blood lipids Father Cerebrovascular accident Social History Social History Smoking packs per day: 1.5 Smoking cigarettes per day: 30.0 Years smoked: 30 Smoking pack-years: 45.00 Smoking status: Former smoker Tobacco type: cigarettes Second hand tobacco smoke exposure: Yes Smoking end date: 08/10/99 Additional smoking assessment comments: DENIES ANY FORM OF TOBACCO USE Alcohol intake: never Alcohol use details: QUIT 1999 Substance use: never Substance use type: does not use Lack of Transportation: No Lack of Food: Never True Current Housing: I Have Housing Concerned About Future Housing: No Difficulty Paying Gas/Electric Bills: No Difficulty Paying for Meds: No Currently Unemployed: No Education: High School Diploma/GED Difficulty w/ Childcare or Family Care: No Living arrangements: alone Gender identity (if verbalized by the patient): Male Spiritual care concerns: No Meds Home Medications and Allergies Home Medications Medication Instructions Recorded Confirmed Type ascorbic acid (vitamin C) 1,000 mg 1 g PO QAM 09/19/20 01/07/23 History tablet (Vitamin C) cholecalciferol (vitamin D3) 125 125 mcg PO QAM 09/19/20 01/07/23 History mcg (5,000 unit) capsule cyanocobalamin (vitamin B-12) 5,000 mcg PO QAM 09/19/20 01/07/23 History 5,000 mcg capsule piowougudlok-acr-amnyl acid-vit 1 tablet PO QAM 09/19/20 01/07/23 History K-lycop 400 mcg-20 mcg-370 mcg tablet (One-A-Day Men's 50 Plus (with vitamin K)) omega-3 fatty acids-vitamin E 1 cap PO QAM 09/19/20 01/07/23 History 1,000 mg capsule psyllium husk 0.52 gram capsule 3.12 g PO QAM 09/19/20 01/07/23 History (Metamucil) glucosamine sulfate 500 mg tablet 500 mg PO DAILY 05/29/21 01/07/23 History (Glucosamine) zinc acetate 25 mg (zinc) capsule 25 mg PO DAILY 07/16/22 01/07/23 History atorvastatin 20 mg tablet See Rx Instructions .Route 08/12/22 01/07/23 Rx .COMPLEX #90 tabs irbesartan 150 See Rx Instructions .Route 08/12/22 01/07/23 Rx mg-hydrochlorothiazide 12.5 mg .COMPLEX #90 tabs tablet diclofenac sodium 75 mg 75 mg PO BID 09/16/22 01/07/23 History tablet,delayed release tramadol 50 mg tablet 50 mg PO Q6H PRN pain #28 tabs 09/16/22 01/07/23 Rx omeprazole 40 mg capsule,delayed See Rx Instructions .Route 12/15/22 01/07/23 Rx release .COMPLEX #90 c
--- NOTE | 2023-01-07 11:21 | WPDANESEPPF ---
Anes - Initial Pre Proc Eval Procedure: Operation Date: 01/07/23 12:00 Proposed Procedures p Left Shoulder Arthroscopy, Mini Open Rotator Cuff Repair Proceed As Indicated, Possible Allograft - Ernie Vogel MD Date/Time: 01/07/23 11:21 Surgeon: Ernie Vogel MD Pre Op Diagnosis: left shoulder rot. cuff tear Patient Data Age: 62 Gender: M Height: 1.85 m Weight: 103.45 kg Allergies Allergy/AdvReac Type Severity Reaction Status Date / Time bee venom protein (honey bee) Allergy Unknown UNKNOWN Verified 01/07/23 10:15 Home Medications Medication Instructions Recorded Confirmed Type ascorbic acid (vitamin C) 1,000 mg 1 g PO QAM 09/19/20 01/07/23 History tablet (Vitamin C) cholecalciferol (vitamin D3) 125 125 mcg PO QAM 09/19/20 01/07/23 History mcg (5,000 unit) capsule cyanocobalamin (vitamin B-12) 5,000 mcg PO QAM 09/19/20 01/07/23 History 5,000 mcg capsule shsuzgwsoigj-mod-uscqp acid-vit 1 tablet PO QAM 09/19/20 01/07/23 History K-lycop 400 mcg-20 mcg-370 mcg tablet (One-A-Day Men's 50 Plus (with vitamin K)) omega-3 fatty acids-vitamin E 1 cap PO QAM 09/19/20 01/07/23 History 1,000 mg capsule psyllium husk 0.52 gram capsule 3.12 g PO QAM 09/19/20 01/07/23 History (Metamucil) glucosamine sulfate 500 mg tablet 500 mg PO DAILY 05/29/21 01/07/23 History (Glucosamine) zinc acetate 25 mg (zinc) capsule 25 mg PO DAILY 07/16/22 01/07/23 History atorvastatin 20 mg tablet See Rx Instructions .Route 08/12/22 01/07/23 Rx .COMPLEX #90 tabs irbesartan 150 See Rx Instructions .Route 08/12/22 01/07/23 Rx mg-hydrochlorothiazide 12.5 mg .COMPLEX #90 tabs tablet diclofenac sodium 75 mg 75 mg PO BID 09/16/22 01/07/23 History tablet,delayed release tramadol 50 mg tablet 50 mg PO Q6H PRN pain #28 tabs 09/16/22 01/07/23 Rx omeprazole 40 mg capsule,delayed See Rx Instructions .Route 12/15/22 01/07/23 Rx release .COMPLEX #90 caps ferrous sulfate 325 mg (65 mg 325 mg PO 2XW 12/30/22 01/07/23 History iron) tablet (Iron (ferrous sulfate)) mupirocin 2 % topical ointment 1 applic topical BID 01/07/23 01/07/23 History Patient hx anesthesia problems: post op nausea/vomiting Family hx anesthesia problems: none Results Review: All pre-operative results and documents have been reviewed as part of the pre-operative evaluation. [facility] Past Medical History Medical History Back Pain GERD (gastroesophageal reflux disease) HLD (hyperlipidemia) HTN (hypertension) Obesity Surgical History Surgical History No significant past surgical history Family History Family History Mother Hypertension Cerebrovascular accident Family history of elevated blood lipids Father Cerebrovascular accident Social History Social History Smoking packs per day: 1.5 Smoking cigarettes per day: 30.0 Years smoked: 30 Smoking pack-years: 45.00 Smoking status: Former smoker Tobacco type: cigarettes Second hand tobacco smoke exposure: Yes Smoking end date: 08/10/99 Additional smoking assessment comments: DENIES ANY FORM OF TOBACCO USE Alcohol intake: never Alcohol use details: QUIT 1999 Substance use: never Substance use type: does not use Lack of Transportation: No Lack of Food: Never True Current Housing: I Have Housing Concerned About Future Housing: No Difficulty Paying Gas/Electric Bills: No Difficulty Paying for Meds: No Currently Unemployed: No Education: High School Diploma/GED Difficulty w/ Childcare or Family Care: No Living arrangements: alone Gender identity (if verbalized by the patient): Male Spiritual care concerns: No Anes - Eval Final PreProcedure Day of Procedure 01/07/23 11:21 [place]
--- NOTE | 2023-01-07 11:51 | WPDHPUPDATE1 ---
History and Physical Update Update Date/Time: 01/07/23 11:51 History and Physical has been reviewed, including an updated exam of the patient. There are NO changes in the patient's condition. A/C joint remains non tender. Risks, benefits, and alternatives have been discussed and questions answered. Patient agrees to proceed with procedure.
[2023-01-07] MEDS: SCOPOLAMINE 1.5 MG PATCH TRANSDERM (12:00)
[2023-01-07] MEDS: ceFAZolin 2 GM/D5W 50 ML 2 GM/50 ML BAG IVPB (12:10)
--- NOTE | 2023-01-07 12:11 | WPDANESPNB ---
Anes - Peripheral Nerve Block Date/Time: 01/07/23 12:11 I have discussed with the patient/family/POA the placement of a peripheral nerve block for post-operative pain management, including associated risks, benefits, complications, and side effects. Alternative methods of post-operative analgesia were detailed. Questions were solicited and answers provided to the satisfaction of the patient/family/POA. Time-Out: A pre-procedural Time-Out was completed immediately before starting the procedure and confirmed: Patient Identification, Site, Procedure, Patient Position and the Availability of Requisite Equipment. Clinical Indications: Acute post-operative pain management requested by the operative surgeon. Nerve Block Insertion Note Anes-nerve block: interscalene left Patient position: other (sitting) Skin prep: chlorhexidine Needle: 22 gauge, stimulating, insulated echogenic needle. Needle length: 80 mm Technique: nerve stimulation lost at (mA) (0.3mA) and ultrasound Technique comment: mid2mg [id number] Injectate: bupivacaine 0.5% with epi 5 mcg/ml (30ml no epi) and dexamethasone (mg) (4) Observations: tolerated well Complications: none Procedure start time:: 1200 Procedure end time:: 120
[2023-01-07] MEDS: ceFAZolin SODIUM 1 GM VIAL (12:59)
[2023-01-07] MEDS: ceFAZolin SODIUM 1 GM VIAL 2 GM IV PUSH (15:15)
--- NOTE | 2023-01-07 16:11 | W.PM.PROC2 ---
Procedure Note - Detailed Date of Procedure 01/07/23 Pre-op Diagnosis left shoulder rot. cuff tear Post-op Diagnosis Same Procedure Performed Arthroscopic debridement frayed labrum, arthroscopic debridement of CA ligament, open rotator cuff repair with arthro flex acellular dermal allograft augmentation Surgeon Ernie Vogel MD [employer] Supervisor [facility] Anesthesia General and Regional Description of Procedure Patient was brought to the operating room after successful administration of left interscalene block for postoperative pain control. General anesthesia was administered. He was placed in the beach chair position in the head and neck carefully secured in neutral alignment. He received 2 g Ancef weight based vancomycin preoperatively. The left shoulder was prepped and draped usual fashion covering all the skin with Ioban accept the top portion. Standard arthroscopic portals were placed. The glenohumeral joint was inspected. He had some mild chondromalacia superior aspect of the humeral head and some erosive change noted that the infraspinatus footprint. Retracted tear of infraspinatus tendon and posterior aspect of supraspinatus tendon was identified. The anterior cable of the supraspinatus tendon was intact. The long of the biceps looked normal. The medial nga was normal. Using the shaver the tendon was probed and there was no fraying no subluxation. The superior labrum with normal there was fraying of the anterior and posterior labrum which was conservatively debrided. Biceps anchor was intact at the superior glenoid. There was chondromalacia of the anterior inferior glenoid. The medial inferior humeral head looked very normal. The subscapularis had some very minor articular side partial-thickness tearing of the articular side the tendon which did not involve the superior rolled edge. Arthroscope was placed in the subacromial space. There was extensive fraying of the coracoacromial ligament and its acromial insertion. The large tear of infraspinatus and supraspinatus tendons was noted and prominent retraction noted of the infraspinatus tendon. The teres minor looked intact. With an anterior outflow portal and placed the CA ligament on the undersurface of the acromion was debulked with the cautery device. Had a type 2 acromion and I did not feel that bone removal was necessary based on the MRI appearance of his acromial morphology. With the arthroscopic instruments removed, the remaining skin was covered with Ioban and outer gloves were changed. A 2-1/2 inch incision was made from the top of the acromion to about 4 cm distal to the acromion. The tendinous raphe a between the anterior and middle heads of the deltoid was identified and incised longitudinally for a split of 3.5 cm. I released approximately 8 mm of anterior deltoid from the acromion from the split to aid in exposure. Self-retaining core Harry retractor placed and the tear inspected. The infraspinatus was markedly retracted under the acromion. Anteriorly the rotator cuff interval capsule and the anterior cable of the supraspinatus were intact but the supraspinatus just posterior to this was very tendinopathic and the anterolateral corner of the retracted supraspinatus and infraspinatus cuff was very tendinopathic as well. The anterior most aspect of the knee care tuberosity exposed footprint had bony excrescence on it which was debrided. This area was about 1 cm wide and posterior to that the infraspinatus had pulled cleanly off the infraspinatus footprint and left some fibrin S organizing clot on the surface of the exposed tuberosity and there was a split between the infraspinatus and teres minor which remained intact. I was able to grasp infraspinatus posteriorly her was less retracted and we placed stay sutures and with this we could pull the tendon laterally and get sutures in the more anterior aspects of the tendon. The anterolateral corner as mentioned was very macerated with t
== END 2023-01-07 18:02 | disposition home or self-care (01) ==
PROVIDERS: PCP Physician Assistant; Visit Provider Orthopaedic Surgery
PROC: (CPT 29805; principal; 2023-01-07 12:00)
DX: S46.012A Strain of muscle(s) and tendon(s) of the rotator cuff of left shoulder, initial encounter (principal); M94.212 Chondromalacia, left shoulder; X50.0XXA Overexertion from strenuous movement or load, initial encounter; G89.18 Other acute postprocedural pain; I10 Essential (primary) hypertension; E78.5 Hyperlipidemia, unspecified; K21.9 Gastro-esophageal reflux disease without esophagitis; E66.9 Obesity, unspecified; Z68.30 Body mass index [BMI] 30.0-30.9, adult; Z87.891 Personal history of nicotine dependence
CPT/HCPCS: 23410; 64415; A4565; A9270; J0330; J0690; J1100; J1885; J2250; J2370; J2405; J2704; J2710; J3010; J3370; J7120

== ENCOUNTER 2023-03-30 10:27 | Outpatient (CLI) | payer OTHER, SELFPAY ==
[2023-03-30 10:59] LABS: Hematocrit 43.2 % (42.0-52.0); Hemoglobin 14.1 g/dL (14.0-18.0)
[2023-03-30 11:09] LABS: Anion Gap 7 mmol/L (8-16); Blood Urea Nitrogen 18 mg/dL (9-20); Calcium 10.1 mg/dL (8.4-10.2); Carbon Dioxide 26 mmol/L (22-30); Chloride 105 mmol/L (98-107); Estimated Glomerular Filt Rate > 60; Glucose 104 mg/dL (65-110); Potassium 4.5 mmol/L (3.4-5.0); Sodium 138 mmol/L (137-145)
== END 2023-03-30 10:28 | disposition home or self-care (01) ==
LOC: ANHSURGERY 10:30
PROVIDERS: Anesthesiology; PCP Physician Assistant; Visit Provider Surgery
DX: D64.9 Anemia, unspecified (principal); I10 Essential (primary) hypertension; Z01.818 Encounter for other preprocedural examination
CPT/HCPCS: 36415; 80048; 85014; 85018

== ENCOUNTER 2023-04-01 00:21 | Day surgery (SDC) | payer OTHER, SELFPAY ==
[2023-02-17 15:15] VITALS: BMI 32.0
--- NOTE | 2023-02-17 15:22 | PC.NURSE ---
Report to the Outpatient Waiting Room, entrance under the green pavilion located off [facility], at time _1130_ on date __02/23/23__. Planned Procedure Time: _1330_. Time changes happen often and if your time is changed the preop area will call you the afternoon before. - You and your visitor will be asked to self-screen and do not enter if you have any COVID symptoms. - A mask is optional within the hospital at this time. Patients may have clear liquids (water, carbonated beverages, clear teas, apple juice) until 3 hours prior to surgery with a maximum of 20 ounces. - No food from midnight until time of surgery - Infants may have breast milk until 4 hours before surgery, infant formula 6 hours prior to surgery. - Children will be allowed to drink immediately following surgery. If applicable, please bring a bottle or sippy cup to assist with drinking. Juice, water, soda, and popsicles are readily available. For infants on formula, please bring formula the day of surgery. Pacifiers are allowed. Take the following medications with a SIP of water the morning of surgery: NONE__ DO NOT STOP ANY OF YOUR OTHER PRESCRIPTION MEDICATIONS PRIOR TO SURGERY ?EXCEPT THE FOLLOWING Medications to discontinue per physician VITAMINS/SUPPLIMENTS/IBUPROFEN Date to take last dose____02/20/23 Please no make-up, nail italian, hairspray, perfume, deodorant, or body powder the day of surgery. No jewelry (including any body piercings) or valuables the day of surgery, leave them at home. Please take a shower or bath the night before, or the morning of, surgery with an antibacterial soap. Wear comfortable, loose fitting clothing. Children are encouraged to wear pajamas. - Jewelry must be removed prior to entering the operating room. Rings and piercings that are not removed may be cut off. - The hospital will not accept responsibility for valuables. - Please leave all valuables, including medications, at home the day of surgery. If you are going home after surgery, a licensed dray driver must drive you home. - NO public transportation without another adult if you receive anesthesia. - We recommend that an adult stay with you for 24 hours following discharge. - We also recommend that you do not drive, make important decision, drink alcoholic beverages, or take any drugs that were not prescribed by your health care provider for at least 24 hours after your discharge time. For Pediatric surgeries, we recommend two adults accompany the child home. Follow any additional instructions given to you from your surgeon. If you or anyone in your household have experienced Covid symptoms in the past week, please notify your surgeon or the nurse liaison at the phone number below for possible testing. Telephone instructions given to PATIENT_and asked if any additional questions and then verbalized understanding. Patient advised to call surgeon office or pre surgery nurse liaison [phone] if any additional questions.
--- NOTE | 2023-03-27 14:38 | PC.NURSE ---
PT DENIES ANY CHANGE IN HEALTH OR MEDICATIONS SINCE INTERVIEW. NEW INSTRUCTIONS GIVEN, PT QUESTIONS ANSWERED
--- NOTE | 2023-03-27 14:39 | PC.NURSE ---
Report to the Outpatient Waiting Room, entrance under the green pavilion located off [facility], at time _1000__ on date _04/01/23_. Planned Procedure Time: _1200_. Time changes happen often and if your time is changed the preop area will call you the afternoon before. - You and your visitor will be asked to self-screen and do not enter if you have any COVID symptoms. - A mask is optional within the hospital at this time. Patients may have clear liquids (water, carbonated beverages, clear teas, apple juice) until 3 hours prior to surgery with a maximum of 20 ounces. - No food from midnight until time of surgery - Infants may have breast milk until 4 hours before surgery, formula 6 hours prior to surgery. - Children will be allowed to drink immediately following surgery. If applicable, please bring a bottle or sippy cup to assist with drinking. Juice, water, soda, and popsicles are readily available. For infants on formula, please bring formula the day of surgery. Pacifiers are allowed. Take the following medications with a SIP of water the morning of surgery: ___NONE DO NOT STOP ANY OF YOUR OTHER PRESCRIPTION MEDICATIONS PRIOR TO SURGERY ?EXCEPT THE FOLLOWING Medications to discontinue per physician VITAMINS AND SUPPLIMENTS Date to take last dose___03/29/23 Please no make-up, nail chilean, hairspray, perfume, deodorant, or body powder the day of surgery. No jewelry (including any body piercings) or valuables the day of surgery, leave them at home. Please take a shower or bath the night before, or the morning of, surgery with HIBICLENS antibacterial soap. Wear comfortable, loose fitting clothing. Children are encouraged to wear pajamas. - Jewelry must be removed prior to entering the operating room. Rings and piercings that are not removed may be cut off. - The hospital will not accept responsibility for valuables. - Please leave all valuables, including medications, at home the day of surgery. If you are going home after surgery, a licensed route driver [employer] machines must drive you home. - NO public transportation without another adult if you receive anesthesia. - We recommend that an adult stay with you for 24 hours following discharge. - We also recommend that you do not drive, make important decision, drink alcoholic beverages, or take any drugs that were not prescribed by your health care provider for at least 24 hours after your discharge time. For Pediatric surgeries, we recommend two adults accompany the child home. Follow any additional instructions given to you from your surgeon. If you or anyone in your household have experienced Covid symptoms in the past week, please notify your surgeon or the nurse liaison at the phone number below for possible testing. Telephone instructions given to ___PATIENT___and asked if any additional questions and then verbalized understanding. Patient advised to call surgeon office or pre surgery nurse liaison [phone] if any additional questions.
--- NOTE | 2023-04-01 10:30 | PM.IMHP ---
H&P: HPI History of Present Illness Date/Time: 04/01/23 10:30 Chief Complaint: R shoulder mass Narrative: Aamir presents to the office at the request of Sesar Pinto PA-C for evaluation of mass of his right upper shoulder. His chiropractor first noticed this back in September and it has increased in size since then. He denies any pain from the area. He also denies any drainage from the area. Review of Systems Review of Systems: All systems reviewed & are unremarkable except as noted in HPI and below PMFSH Past Medical History Medical History Back Pain GERD (gastroesophageal reflux disease) HLD (hyperlipidemia) HTN (hypertension) Obesity Surgical History Surgical History H/O rotator cuff surgery Left 01/07/2023 History of partial knee replacement 2020- left knee Family History Family History Mother Hypertension Cerebrovascular accident Family history of elevated blood lipids Father Cerebrovascular accident Social History Social History Smoking packs per day: 1.5 Smoking cigarettes per day: 30.0 Years smoked: 30 Smoking pack-years: 45.00 Smoking status: Former smoker Tobacco type: cigarettes Second hand tobacco smoke exposure: Yes Smoking end date: 08/10/99 Additional smoking assessment comments: DENIES ANY FORM OF TOBACCO USE Alcohol intake: never Alcohol use details: QUIT 1999 Substance use: never Substance use type: does not use Lack of Transportation: No Lack of Food: Never True Current Housing: I Have Housing Concerned About Future Housing: No Difficulty Paying Gas/Electric Bills: No Difficulty Paying for Meds: No Currently Unemployed: No Education: High School Diploma/GED Difficulty w/ Childcare or Family Care: No Living arrangements: alone Occupation/Education: occupation 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 Gender identity (if verbalized by the patient): Male Spiritual care concerns: No Meds Home Medications and Allergies Home Medications Medication Instructions Recorded Confirmed Type ascorbic acid (vitamin C) 1,000 mg 1 g PO QAM 09/19/20 02/17/23 History tablet (Vitamin C) cholecalciferol (vitamin D3) 125 125 mcg PO QAM 09/19/20 02/17/23 History mcg (5,000 unit) capsule cyanocobalamin (vitamin B-12) 5,000 mcg PO QAM 09/19/20 02/17/23 History 5,000 mcg capsule hnvbxrilvwsf-qvl-syehi acid-vit 1 tablet PO QAM 09/19/20 02/17/23 History K-lycop 400 mcg-20 mcg-370 mcg tablet (One-A-Day Men's 50 Plus (with vitamin K)) zinc acetate 25 mg (zinc) capsule 25 mg PO DAILY 07/16/22 02/17/23 History atorvastatin 20 mg tablet See Rx Instructions .Route 08/12/22 02/17/23 Rx .COMPLEX #90 tabs irbesartan 150 See Rx Instructions .Route 08/12/22 02/17/23 Rx mg-hydrochlorothiazide 12.5 mg .COMPLEX #90 tabs tablet omeprazole 40 mg capsule,delayed See Rx Instructions .Route 12/15/22 02/17/23 Rx release .COMPLEX #90 caps ferrous sulfate 325 mg (65 mg 325 mg PO 2XW 12/30/22 02/17/23 History iron) tablet (Iron (ferrous sulfate)) ibuprofen 200 mg tablet 200 mg PO BID 02/17/23 02/17/23 History acetaminophen 500 mg capsule 1,000 mg PO Q6H PRN Pain 03/27/23 02/17/23 History diclofenac sodium 75 mg 75 mg PO BID 03/27/23 03/27/23 History tablet,delayed release Allergies Allergy/AdvReac Type Severity Reaction Status Date / Time bee venom protein (honey bee) Allergy Unknown UNKNOWN Verified 04/01/23 10:13 Exam Const: General: cooperative, comfortable and no acute distress Resp: Auscultation: clear to auscultation bilaterally Cardio: Rate: regular rate Rhythm: regular rhythm GI: Inspection: normal to inspection and non-disten
[2023-04-01 10:32] VITALS: BP 134/72; PULSE 78; RESP 16; TEMP 36.8; O2SAT 96
--- NOTE | 2023-04-01 11:07 | WPDHPUPDATE1 ---
History and Physical Update Update Date/Time: 04/01/23 11:07 History and Physical has been reviewed, including an updated exam of the patient. There are NO changes in the patient's condition. Risks, benefits, and alternatives have been discussed and questions answered. Patient agrees to proceed with procedure.
[2023-04-01] MEDS: ceFAZolin 2 GM/D5W 50 ML 2 GM/50 ML BAG IVPB (12:10)
[2023-04-01] MEDS: BUPIVACAINE/EPINEPHRINE 0.5% 30 ML VIAL INFILTRATE (12:38)
[2023-04-01 13:10] VITALS: BP 98/67; PULSE 71; RESP 16; O2SAT 97
[2023-04-01] MEDS: LACTATED RINGERS 1,000 ML 30 ML IV CONT (13:10)
--- NOTE | 2023-04-01 13:12 | W.PM.PROC2 ---
Procedure Note - Detailed Date of Procedure 04/01/23 Pre-op Diagnosis right upper back mass Post-op Diagnosis Same Procedure Performed excisional biopsy right upper back mass measuring approximately 7 x 5 cm Surgeon Adela Smith MD Anesthesia MAC and Local Indications 62-year-old male presenting to the office with right upper back mass. Patient reports mass slowly growing in size and becoming more symptomatic. Findings Subcutaneous right upper back mass extending to muscle but not into Description of Procedure The patient was taken the operating room and placed in the lateral position. After adequate induction of MAC anesthesia, the patient is prepped and draped in the normal sterile fashion. A time-out was then done to verify the patient's identity, as well as the procedure being performed. I began by localizing the area over the mass in the right upper back. I then made an incision over the mass using a 15 blade scalpel. This incision was carried through the dermis into the subcutaneous tissue. This mass was noted to be deep and extended to the level of the muscle, however did not invade into the muscle. I was able to circumferentially dissect around the mass and remove it in full. This mass measured approximately 5 x 3 cm. There was noted to be some local extension that was also excised and sent for pathology. 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 Once the entire area was excised, irrigated the cavity. No other pathology was noted. Hemostasis was gained with the Bovie cautery. I then closed the subcutaneous tissue with 2-0 Vicryl suture. The skin was closed with 4-0 Monocryl subcuticular suture. Dermabond was then placed on the wound. The patient tolerated the procedure well and was alert and awake in the operating room postoperatively. He will be transferred to the recovery room in stable condition. Estimated Blood Loss 5 Drains No Packing No Pathology Yes Complications No immediate complications Condition Stable Disposition PACU [facility] Billing Surgery - Charge Forward: Surgery Billing
[2023-04-01 13:40] VITALS: BP 140/78; PULSE 61
== END 2023-04-01 13:47 | disposition home or self-care (01) ==
PROVIDERS: PCP Physician Assistant; Visit Provider Surgery
PROC: (CPT 21931; principal; 2023-04-01 12:00)
DX: R22.2 Localized swelling, mass and lump, trunk (principal); I10 Essential (primary) hypertension; E78.5 Hyperlipidemia, unspecified; K21.9 Gastro-esophageal reflux disease without esophagitis; E66.9 Obesity, unspecified; Z68.32 Body mass index [BMI] 32.0-32.9, adult; Z87.891 Personal history of nicotine dependence
CPT/HCPCS: 21931; 36415; 80048; 85014; 85018; 88304; J0690; J1100; J2250; J2590; J2704; J3010; J7120

== ENCOUNTER 2023-08-13 07:53 | Day surgery (SDC) | payer OTHER, SELFPAY ==
[2023-07-21 13:21] VITALS: BMI 32.3
--- NOTE | 2023-08-13 07:55 | WPDANESEPPF ---
Anes - Initial Pre Proc Eval Procedure: Operation Date: 08/13/23 10:00 Proposed Procedures p Colonoscopy - Kraig Delvalle MD Date/Time: 08/13/23 07:55 Surgeon: Kraig Delvalle MD Pre Op Diagnosis: Family History Colon Polyps Patient Data Age: 63 Gender: M Height: 1.85 m Weight: 111.13 kg Allergies Allergy/AdvReac Type Severity Reaction Status Date / Time bee venom protein (honey bee) Allergy Unknown UNKNOWN Verified 08/13/23 08:55 Home Medications Medication Instructions Recorded Confirmed Type ascorbic acid (vitamin C) 1,000 mg 1 g PO QAM 09/19/20 08/13/23 History tablet (Vitamin C) cholecalciferol (vitamin D3) 125 125 mcg PO QAM 09/19/20 08/13/23 History mcg (5,000 unit) capsule cyanocobalamin (vitamin B-12) 5,000 mcg PO QAM 09/19/20 07/27/23 History 5,000 mcg capsule ufzneretjgqy-dcu-rypfs acid-vit 1 tablet PO QAM 09/19/20 08/13/23 History K-lycop 400 mcg-20 mcg-370 mcg tablet (One-A-Day Men's 50 Plus (with vitamin K)) zinc acetate 25 mg (zinc) capsule 25 mg PO DAILY 07/16/22 07/27/23 History atorvastatin 20 mg tablet See Rx Instructions .Route 08/12/22 08/13/23 Rx .COMPLEX #90 tabs irbesartan 150 See Rx Instructions .Route 08/12/22 08/13/23 Rx mg-hydrochlorothiazide 12.5 mg .COMPLEX #90 tabs tablet ferrous sulfate 325 mg (65 mg 325 mg PO 2XW 12/30/22 08/13/23 History iron) tablet (Iron (ferrous sulfate)) ibuprofen 200 mg tablet 200 mg PO BID 02/17/23 08/13/23 History acetaminophen 500 mg capsule 1,000 mg PO Q6H PRN Pain 03/27/23 08/13/23 History hydrocodone 5 mg-acetaminophen 325 1 tablet PO Q6H PRN pain #20 tabs 04/01/23 08/13/23 Rx mg tablet omeprazole 40 mg capsule,delayed See Rx Instructions .Route 06/15/23 08/13/23 Rx release .COMPLEX #90 caps ginseng 560 mg capsule 560 mg PO DIRECTED 07/27/23 08/13/23 History diclofenac sodium 75 mg 75 mg PO BID #180 tabs 08/04/23 08/13/23 Rx tablet,delayed release Patient hx anesthesia problems: none Family hx anesthesia problems: none Results Review: All pre-operative results and documents have been reviewed as part of the pre-operative evaluation. [facility] Past Medical History Medical History Back Pain GERD (gastroesophageal reflux disease) HLD (hyperlipidemia) HTN (hypertension) Obesity Surgical History Surgical History H/O rotator cuff surgery Left 01/07/2023 History of partial knee replacement 2020- left knee Family History Family History Mother Hypertension Cerebrovascular accident Family history of elevated blood lipids Father Cerebrovascular accident Social History Social History Smoking packs per day: 1.5 Smoking cigarettes per day: 30.0 Years smoked: 30 Smoking pack-years: 45.00 Smoking status: Former smoker Tobacco type: cigarettes Second hand tobacco smoke exposure: Yes Smoking end date: 08/10/99 Additional smoking assessment comments: quit 1999 Alcohol intake: former Alcohol use details: quit 1999 Substance use: never Substance use type: does not use Lack of Transportation: No Lack of Food: Never True Current Housing: I Have Housing Concerned About Future Housing: No Difficulty Paying Gas/Electric Bills: No Difficulty Paying for Meds: No Currently Unemployed: No Education: High School Diploma/GED Difficulty w/ Childcare or Family Care: No Living arrangements: alone Occupation/Education: occupation 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 Gender identity (if verbalized by the patient): Male Spiritual care concerns: No Anes - Eval Final PreProcedure Day of Procedure 08/13/23 07:55 Patient weight: obese Heart: regular rate and rhythm
[2023-08-13 09:00] VITALS: BP 155/98; PULSE 83; RESP 18; TEMP 36.9; O2SAT 96
--- NOTE | 2023-08-13 09:10 | PM.HPGS ---
History of Present Illness History of Present Illness Consent: Risks, benefits, and alternatives have been discussed and questions answered. Patient agrees to proceed with procedure. Chief complaint: Family History Colon Polyps Narrative: Aamir Robert is a 63 year old male present for colonoscopy. Patient's previous colonoscopy 2016 revealed only hemorrhoids. Patient's family history is significant his brother has had colon polyps. His mother had reports that his current weight appetite and bowel movements are normal. Patient denies abdominal pain. He has had no bleeding. Review of Systems Review of Systems: Review of systems noncontributory. [facility] Past Medical History Medical History Back Pain GERD (gastroesophageal reflux disease) HLD (hyperlipidemia) HTN (hypertension) Obesity Surgical History Surgical History H/O rotator cuff surgery Left 01/07/2023 History of partial knee replacement 2020- left knee Family History Family History Mother Hypertension Cerebrovascular accident Family history of elevated blood lipids Father Cerebrovascular accident Social History Social History Smoking packs per day: 1.5 Smoking cigarettes per day: 30.0 Years smoked: 30 Smoking pack-years: 45.00 Smoking status: Former smoker Tobacco type: cigarettes Second hand tobacco smoke exposure: Yes Smoking end date: 08/10/99 Additional smoking assessment comments: quit 1999 Alcohol intake: former Alcohol use details: quit 1999 Substance use: never Substance use type: does not use Lack of Transportation: No Lack of Food: Never True Current Housing: I Have Housing Concerned About Future Housing: No Difficulty Paying Gas/Electric Bills: No Difficulty Paying for Meds: No Currently Unemployed: No Education: High School Diploma/GED Difficulty w/ Childcare or Family Care: No Living arrangements: alone Occupation/Education: occupation 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 Gender identity (if verbalized by the patient): Male Spiritual care concerns: No Meds Home Medications and Allergies Home Medications Medication Instructions Recorded Confirmed Type ascorbic acid (vitamin C) 1,000 mg 1 g PO QAM 09/19/20 08/13/23 History tablet (Vitamin C) cholecalciferol (vitamin D3) 125 125 mcg PO QAM 09/19/20 08/13/23 History mcg (5,000 unit) capsule cyanocobalamin (vitamin B-12) 5,000 mcg PO QAM 09/19/20 07/27/23 History 5,000 mcg capsule dozhpijdtvfh-ojd-tlpan acid-vit 1 tablet PO QAM 09/19/20 08/13/23 History K-lycop 400 mcg-20 mcg-370 mcg tablet (One-A-Day Men's 50 Plus (with vitamin K)) zinc acetate 25 mg (zinc) capsule 25 mg PO DAILY 07/16/22 07/27/23 History atorvastatin 20 mg tablet See Rx Instructions .Route 08/12/22 08/13/23 Rx .COMPLEX #90 tabs irbesartan 150 See Rx Instructions .Route 08/12/22 08/13/23 Rx mg-hydrochlorothiazide 12.5 mg .COMPLEX #90 tabs tablet ferrous sulfate 325 mg (65 mg 325 mg PO 2XW 12/30/22 08/13/23 History iron) tablet (Iron (ferrous sulfate)) ibuprofen 200 mg tablet 200 mg PO BID 02/17/23 08/13/23 History acetaminophen 500 mg capsule 1,000 mg PO Q6H PRN Pain 03/27/23 08/13/23 History hydrocodone 5 mg-acetaminophen 325 1 tablet PO Q6H PRN pain #20 tabs 04/01/23 08/13/23 Rx mg tablet omeprazole 40 mg capsule,delayed See Rx Instructions .Route 06/15/23 08/13/23 Rx release .COMPLEX #90 caps ginseng 560 mg capsule 560 mg PO DIRECTED 07/27/23 08/13/23 History diclofenac sodium 75 mg 75 mg PO BID #180 tabs 08/04/23 08/13/23 Rx tablet,delayed release Allergies Allergy/AdvReac Type Severity Reaction Status Date / Ti
[2023-08-13] MEDS: LACTATED RINGERS 1,000 ML 150 ML IV CONT (09:18)
[2023-08-13 10:38] VITALS: BP 136/85; PULSE 76; RESP 16; O2SAT 95
[2023-08-13 10:48] VITALS: BP 106/76; PULSE 72; RESP 16; O2SAT 98
[2023-08-13 10:58] VITALS: BP 114/82; PULSE 65; RESP 16; O2SAT 100
--- NOTE | 2023-08-13 11:39 | WPDANESPN ---
Anes - Prog Note Post-Op Date/Time: 08/13/23 11:39 Cardiovascular status: normal Respiratory status: normal Airway patency: baseline Mental status: baseline Post-Op hydration status: normal Vital Signs: Last Vital Signs Temp 36.9 C 08/13/23 09:00 Pulse 65 08/13/23 10:58 Resp 16 08/13/23 10:58 BP 114/82 08/13/23 10:58 Pulse Ox 100 08/13/23 10:58 O2 Del Method Room Air 08/13/23 10:58 Pain Score (VAS): 0 I/O: Intake & Output 08/12/23 08/13/23 08/13/23 23:59 07:59 15:59 Intake Total 750 Balance 750 Post-procedural complaints: none Patient Feedback: Patient satisfied with anesthetic care. Other Findings: Patient vital signs back to baseline. Patient denies nausea and vomiting. Patient's pain under control. Patient OK for discharge.
== END 2023-08-13 11:10 | disposition home or self-care (01) ==
PROVIDERS: PCP Physician Assistant; Visit Provider Internal Medicine Gastroenterology
PROC: 0DJD8ZZ Inspection of Lower Intestinal Tract, Via Natural or Artificial Opening Endoscopic (ICD-10-PCS; CPT 45378; principal; 2023-08-13 10:00)
DX: Z83.718 Family history of other colon polyps (principal); K64.8 Other hemorrhoids
CPT/HCPCS: 45378

== ENCOUNTER 2023-09-03 10:42 | Outpatient (CLI) | payer OTHER, SELFPAY ==
--- NOTE | ~2023-09-03 | XR_ITS ---
Right Shoulder Technique: AP and scapular Y views were obtained. Clinical History: Pain Findings: No fracture or dislocation is seen. Osseous alignment is anatomic. The glenohumeral joint i s preserved. There is mild AC joint degenerative change. Soft tissues are unremarkable. Impression: Mild AC joint degenerative change. Reviewed, dictated and finalized at [facility]. ERY DECORATOR Impression: Mild AC joint degenerative change.
== END 2023-09-03 10:43 ==
LOC: GOSHIMG 10:44
PROVIDERS: PCP Physician Assistant; Visit Provider Physician Assistant
DX: M19.011 Primary osteoarthritis, right shoulder (principal); W00.0XXA Fall on same level due to ice and snow, initial encounter
CPT/HCPCS: 73030

== ENCOUNTER 2023-09-08 10:15 | Outpatient (CLI) | payer OTHER, SELFPAY ==
--- NOTE | ~2023-09-08 | MR_ITS ---
MRI of the right shoulder Technique: Axial proton-density fat-sat images, coronal proton density fat-sat and T2 fat-sat images, and sagittal T1-weighted and T2 fat-sat images were acquired. Clinical History: Pain Findings: There is moderate to severe AC joint degenerative change with bony productive change at the distal clavicle. Small amount of fluid present in the joint. Coracoclavicular, coracoacromial, and c oracohumeral ligaments appear intact. There is complete, full-thickness tear involving the entire distal supraspinatus tendon, with fluid-f illed gap measuring approximately 2.4 x 2.1 cm in extent. There is moderate to severe infraspinatus t endinosis, without partial or full-thickness tear. Subscapularis tendon demonstrates severe tendinosi s. Tendon of the long head of the biceps is intact. There is superior labral tearing, probably extending to the anterosuperior and posterior superior por tions. Inferior glenohumeral ligament is intact, with thickening of the proximal portion. There are small gl enohumeral joint effusion with fluid passing through the rotator cuff defect into the subacromial/sub deltoid bursa. No muscle atrophy or edema identified. There is mild chondromalacia the humeral head. Impression: Complete, full-thickness tear of the entire supraspinatus tendon distally, as detailed above. Degenerative SLAP tear of the labrum. Background advanced tendinosis of the rotator cuff. Moderate to severe AC joint degenerative change. Reviewed, dictated and finalized at [facility]. BILITY TECHNICIAN Impression: Complete, full-thickness tear of the entire supraspinatus tendon distally, as d etailed above. Degenerative SLAP tear of the labrum. Background advanced tendinosis of the rotator cuff. Moderate to severe AC joint degenerative change.
== END 2023-09-08 10:16 ==
PROVIDERS: PCP Physician Assistant; Visit Provider Physician Assistant
DX: M75.121 Complete rotator cuff tear or rupture of right shoulder, not specified as traumatic (principal); S43.431A Superior glenoid labrum lesion of right shoulder, initial encounter; M19.011 Primary osteoarthritis, right shoulder; M75.31 Calcific tendinitis of right shoulder; X58.XXXA Exposure to other specified factors, initial encounter
CPT/HCPCS: 73221

== ENCOUNTER 2024-07-18 15:11 | Emergency (ER) | payer OTHER, SELFPAY ==
[2024-07-18 15:40] VITALS: BP 145/83; PULSE 82; RESP 15; TEMP 36.5; O2SAT 98
--- NOTE | 2024-07-18 15:57 | ED_ITS ---
HPI - Wound/Laceration General Chief Complaint: Wound/Laceration Stated Complaint: Cut Left Hand Time Seen by Provider: 07/18/24 15:50 Source: patient Mode of arrival: ambulatory Limitations: no limitations History of Present Illness HPI narrative: Jose is a 64-year-old male patient presenting to the clinic today with complaints of a cut to his left index and middle finger. He reports he cut it accidentally on a supervisor transferring and boxing while he was at work around 2:00 p.m. today. Bleeding is controlled. Tetanus up todate in 2022. Related Data Home Medications Medication Instructions Recorded Confirmed ascorbic acid (vitamin C) 1,000 mg 1 g PO QAM 09/19/20 06/14/24 tablet (Vitamin C) cholecalciferol (vitamin D3) 125 125 mcg PO QAM 09/19/20 06/14/24 mcg (5,000 unit) capsule cyanocobalamin (vitamin B-12) 5,000 mcg PO QAM 09/19/20 06/14/24 5,000 mcg capsule [id number] acid-vit 1 tablet PO QAM 09/19/20 06/14/24 K-lycop 400 mcg-20 mcg-370 mcg tablet (One-A-Day Men's 50 Plus (with vitamin K)) zinc acetate 25 mg (zinc) capsule 25 mg PO DAILY 07/16/22 06/14/24 ferrous sulfate 325 mg (65 mg 325 mg PO 2XW 12/30/22 06/14/24 iron) tablet (Iron (ferrous sulfate)) ibuprofen 200 mg tablet 200 mg PO BID 02/17/23 06/14/24 acetaminophen 500 mg capsule 1,000 mg PO Q6H PRN Pain 03/27/23 06/14/24 Allergies Allergy/AdvReac Type Severity Reaction Status Date / Time bee venom protein (honey bee) Allergy Unknown UNKNOWN Verified 06/14/24 14:54 Review of Systems Review of Systems: Pertinent positives per HPI. Patient denies any fever, chills, rash, headache, visual changes, dizziness, cough, runny nose, sore throat, shortness of breath, chest pain, palpitations, nausea, vomiting, diarrhea, constipation, abdominal pain, or any urinary issues. [facility] Past Medical History Medical History (Updated 07/18/24 @ 16:23 by Balwinder Pierre APRN) Harry's palsy GERD (gastroesophageal reflux disease) Low back pain Obesity Surgical History Surgical History H/O rotator cuff surgery Left 01/07/2023, right 09/28/23 History of partial knee replacement 2020- left knee Family History Family History Mother Hypertension Cerebrovascular accident Family history of elevated blood lipids Father Cerebrovascular accident Social History Social History Smoking packs per day: 1.5 Smoking cigarettes per day: 30.0 Years smoked: 30 Smoking pack-years: 45.00 Smoking status: Former smoker Tobacco type: cigarettes Second hand tobacco smoke exposure: Yes Smoking end date: 08/10/99 Additional smoking assessment comments: quit 1999 Alcohol intake: former Alcohol use details: quit 1999 Substance use: current Substance use type: marijuana Other substance usage details: gummies as needed Do You Feel Safe in your Home?: Yes Lack of Transportation: No Lack of Food: Never True Current Housing: I Have Housing Concerned About Future Housing: No Difficulty Paying Gas/Electric Bills: No Difficulty Paying for Meds: No Currently Unemployed: No Education: High School Diploma/GED Difficulty w/ Childcare or Family Care: No Living arrangements: alone Occupation/Education: occupation 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 Gender identity (if verbalized by the patient): Male Spiritual care concerns: No Comments At the time of my signature, I reviewed and agree with the nursing past medical, surgical, social, and family history. There is no relevant family history pertinent to the patient complaint. Exam Narrative: General: Well-developed, well nourished, in no apparent distress Head: Normocephalic, atraumatic. Cardio: Regular rate and rhythm, s1 and s2 normal, no murmur appreciated. Resp: Clear to auscultation bilaterally, no rhonchi, rales, wheezing or rubs. Integumentary: [place], warm, and dry, 1.5 cm laceration to the left lateral volar index finger and 2.0 cm laceration to the left lateral volar middle finger Course Course Emergency Course: Portions of this record may have been created with voice recognition software. Level of Care: Express Care Visit Vital Signs Vital signs: Vital Signs Temperature 36.5 C 07/18/24 15:40 Pulse Rate 82 07/18/24 15:40 Respiratory Rate 15 07/18/24 15:40 Blood Pressure 145/83 H 07/18/24 15:40 Pulse Oximetry 98 07/18/24 15:40 Oxygen Delivery Room Air 07/18/24 15:40 Temperature 36.5 C 07/18/24 15:40 Pulse Rate 82 07/18/24 15:40 Respiratory Rate 15 07/18/24 15:40 Blood Pressure 145/83 H 07/18/24 15:40 Pulse Oximetry 98 07/18/24 15:40 Oxygen Delivery Room Air 07/18/24 15:40 Vital signs reviewed Procedures Laceration Laceration 1: Date: 07/18/24 Site: hand (left index and left middle fingers) Side (If applicable): left Size (cm): 2 (1.5cm) Description: linear, irregular and clean Depth: simple, single layer Local Anesthetic: lidocaine 1% Amount of anesthesia used (mL): 2 Pre-repair: wound explored, irrigated and irrigated extensively ====== Skin Level ====== Skin layer closed with: nylon Size (cm): 5-0 Number of sutures: 7 Technique: simple, interrupted ====== Subcutaneous Layer ====== ====== Muscle Layer ====== ====== Tendon Layer ====== Dressing: Verbal consent obtained for laceration repair. Risk and benefits explained and patient voiced understanding. Area was cleansed with antiseptic wound wash and a 27 gauge needle was then used to instill (2) ml of 1% lidocaine without epi into the wound edges. Area was prepped and draped using sterile technique. A 5-0 suture on a p needle was used to place (7) interrupted sutures bringing the wound edges together- well approximated. Patient tolerated procedure well. Sin rile dressing applied. MDM - Wound/Laceration MDM Narrative Medical decision making narrative: At the time of visit patient is resting comfortably on the exam table. Patient appears to be nontoxic. Procedures: Laceration repair was performed. Three interrupted sutures were placed into the left index finger to close wound well approximated. Four interrupted sutures were placed into the left middle finger to close wound- wound well approximate Plan: Laceration repair was performed. Patient tolerated well. Sutures to be remove in 7 days. Supportive measures were discussed with the patient and they voiced understanding discharge instructions and agrees to treatment plan. Return precautions reviewed Differential Diagnosis Differential diagnosis: Likely laceration, abscess, abrasion and avulsion of skin Discharge Plan Discharge Clinical Impression: Finger laceration Patient Disposition: Home, Self-Care Condition: Stable Instructions: Antibiotic Form, Care For Your Stitches (ED), Laceration (ED) Additional Instructions: Leave bandage on for 24 hours then may remove and apply band aide covering as needed. Keep wound clean and dry Wash wound daily with soap and water and pat dry Skin sutures out in 7 days. Watch for signs and symptoms of infection- redness, streaking, swelling, purulent discharge, or increase in pain. Follow up with your PCP for suture removal or return to the Express care. Prescriptions: No Action zinc acetate 25 mg (zinc) capsule 25 mg PO DAILY (DME) blood pressure test kit-large Kit See Rx Instructions .Route Qty: 1 0RF Rx Instructions: As directed ferrous sulfate [Iron (ferrous sulfate)] 325 mg (65 mg iron) Tablet 325 mg PO 2XW Patient Comments: PT TAKES ON THURSDAY AND THURSDAY ibuprofen 200 mg Tablet 200 mg PO BID acetaminophen 500 mg capsule 1,000 mg PO Q6H PRN (Reason: Pain) ascorbic acid (vitamin C) [Vitamin C] 1,000 mg Tablet 1 g PO QAM Hold Instructions: Resume on 06/26/21. cholecalciferol (vitamin D3) 125 mcg (5,000 unit) Capsule 125 mcg PO QAM One-A-Day Men's 50 Plus(vit K) 400-20-370 mcg Tablet 1 tablet PO QAM cyanocobalamin (vitamin B-12) 5,000 mcg Capsule 5,000 mcg PO QAM atorvastatin 20 mg tablet See Rx Instructions .ROUTE .COMPLEX Qty: 90 3RF Dose Instruction: TAKE 1 TABLET BY MOUTH DAILY Rx Instructions: TAKE 1 TABLET BY MOUTH DAILY irbesartan-hydrochlorothiazide 150-12.5 mg tablet See Rx Instructions .ROUTE .COMPLEX Qty: 90 3RF Dose Instruction: TAKE 1 TABLET BY MOUTH EVERY MORNING Rx Instructions: TAKE 1 TABLET BY MOUTH EVERY MORNING diclofenac sodium 75 mg tablet,delayed release (DR/EC) 75 mg PO BID Qty: 180 1RF omeprazole 40 mg capsule,delayed release(DR/EC) See Rx Instructions .ROUTE .COMPLEX Qty: 90 1RF Dose Instruction: TAKE 1 CAPSULE DAILY Rx Instructions: TAKE 1 CAPSULE DAILY metformin 500 mg tablet extended release 24 hr See Rx Instructions PO .COMPLEX Qty: 180 1RF Rx Instructions: orally; week 1: 1 po q dinner. week2: 1 po breakfast and dinner. week 3: 1 po break/ 2 po dinner. week 4: 2 po break/2 po dinner Follow-up/Referrals: Izabella Rios MD [Primary Care Provider] - Time of Disposition: 16:24 Quality NIHSS Nursing Documentation ED NIHSS nursing documentation: reviewed/agree
== END 2024-07-18 16:30 | disposition home or self-care (01) ==
PROVIDERS: Emergency Provider Nurse Practitioner Family; PCP Family Medicine
DX: S61.211A Laceration without foreign body of left index finger without damage to nail, initial encounter (principal); S61.213A Laceration without foreign body of left middle finger without damage to nail, initial encounter; W26.8XXA Contact with other sharp object(s), not elsewhere classified, initial encounter; Y99.0 Civilian activity done for income or pay; Z87.891 Personal history of nicotine dependence; F12.90 Cannabis use, unspecified, uncomplicated; K21.9 Gastro-esophageal reflux disease without esophagitis; E66.9 Obesity, unspecified; Z68.29 Body mass index [BMI] 29.0-29.9, adult
CPT/HCPCS: 12002; 99212; G0463; J2003